=== PATIENT | female | born 1965 | race American Indian/Alaskan Native ===

== ENCOUNTER 2018-12-01 14:45 | Emergency (ER) | payer MEDICAID ==
[~2018-12-01] VITALS: Ht 149.9 cm; Wt 126.4 kg
[2018-12-01 15:07] VITALS: TEMP 98.6
[2018-12-01 16:04] LABS: BASO % 0.5 % (0.0-2.0); EOS # 0.4 (0.0-0.7); EOS % 5.7 % (0-4.0); GRAN # 4.1 (1.4-6.5); LYMPH # 1.4 (1.2-3.4); LYMPH % 21.7 % (20.0-51.0); MEAN CELL VOLUME 89 fl (80.0-100.0); MEAN CORPUSCULAR HEMOGLOBIN 28 pg (27.0-31.0); MEAN CORPUSCULAR HGB CONC 32 g/dl (33.0-37.0); MEAN PLATELET VOLUME 10.9 fl (7.4-10.4); MONO # 0.7 (0.1-0.6); MONO % 9.9 % (1.7-9.3); PLATELET COUNT 204 K/mm3 (130-400); RED BLOOD COUNT 4.59 M/mm3 (4.10-5.30); REDCELL DISTRIBUTION WIDTH-CV 15.4 % (11.5-14.5)
[2018-12-01 16:14] LABS: ALBUMIN 4.3 gm/dL (3.5-5.0); BILIRUBIN,TOTAL 0.9 mg/dL (0.0-1.0); CALCIUM 9.8 mg/dL (8.4-10.2); CREATININE, serum 0.64 (0.52-1.25); POTASSIUM 4.5 mmol/L (3.4-5.0); TOTAL PROTEIN 8.2 gm/dL (6.4-8.2)
[2018-12-01] MEDS ORDERED: PREDNISONE20 MG PO (16:44)
[2018-12-01] MEDS ORDERED: LIPITOR 10MG10 MG PO (16:59)
[2018-12-01] MEDS ORDERED: NEURONTIN300 MG/CAP PO (16:59)
[2018-12-01] MEDS ORDERED: SINGULAIR 110 MG/TAB PO (17:00)
[2018-12-01] MEDS ORDERED: FIORICET 325 MG1 TA1 PO (17:00)
[2018-12-01] MEDS ORDERED: SYNTHROID0.1 MG/TAB (17:02)
[2018-12-01 18:57] VITALS: BP 142/90; PULSE 100
== END 2018-12-01 18:58 | disposition home or self-care (01) ==
LOC: COL.ER 14:45
PROVIDERS: Emergency Medicine
DX: J45.901 Unspecified asthma with (acute) exacerbation (principal); E66.9 Obesity, unspecified; E78.5 Hyperlipidemia, unspecified; Z90.89 Acquired absence of other organs; Z98.51 Tubal ligation status; Z87.891 Personal history of nicotine dependence
CPT/HCPCS: J7512

== ENCOUNTER 2018-12-29 13:00 | Outpatient (RCR) | payer MEDICAID ==
[~2018-12-29 13:00] MED LIST: FIORICET 325 MG1 TA1 PO; LIPITOR 10MG10 MG PO; NEURONTIN300 MG/CAP PO; PREDNISONE20 MG PO; SINGULAIR 110 MG/TAB PO; SYNTHROID0.1 MG/TAB
== END 2019-03-08 | disposition home or self-care (01) ==
LOC: WSOT
DX: G56.03 Carpal tunnel syndrome, bilateral upper limbs (principal)

== ENCOUNTER → 2019-01-15 | Outpatient (CLI) | payer MEDICAID | LOC: COL.RAD 16:01 | DX: M16.12 Unilateral primary osteoarthritis, left hip (principal) ==

== ENCOUNTER → 2019-05-20 | Outpatient (CLI) | payer MEDICAID | LOC: MC.RAD 16:25 | DX: Z12.31 Encounter for screening mammogram for malignant neoplasm of breast (principal) ==

== ENCOUNTER → 2019-05-26 | Outpatient (CLI) | payer MEDICAID ==
[~2019-05-26] VITALS: Ht 148.6 cm; Wt 130.2 kg
[~2019-05-26] MED LIST changes: +BREO IH; +EPA FISH OIL1 SGL PO; +FLONASEALLERGY NS; +ONE-A-DAY WOMEN1 TAB PO; +SYNTHROID0.1 MG/TAB PO; +VENTOLIN0.09 MG IH; +WELLBUTRIN XL150 MG PO; +ZYRTEC 10MG10 MG PO
[2019-05-26 11:51] VITALS: BP 116/64; PULSE 88
== END ==
LOC: LIGHT
DX: Z68.43 Body mass index [BMI] 50.0-59.9, adult (principal); M54.5 Low back pain
CPT/HCPCS: G0463

== ENCOUNTER 2019-05-28 10:00 | Outpatient (RCR) | payer MEDICAID | END 2019-07-28 | disposition home or self-care (01) | LOC: WSC | DX: M54.5 Low back pain (principal); G89.29 Other chronic pain; M25.529 Pain in unspecified elbow; Z91.81 History of falling; Z90.89 Acquired absence of other organs; Z98.51 Tubal ligation status; Z90.49 Acquired absence of other specified parts of digestive tract ==

== ENCOUNTER → 2019-11-09 | Outpatient (CLI) | payer MEDICAID | LOC: COL.RAD 13:59 | DX: R07.9 Chest pain, unspecified (principal) ==

== ENCOUNTER → 2019-11-19 | Outpatient (CLI) | payer MEDICAID | LOC: COL.VAS 13:45 | DX: I51.7 Cardiomegaly (principal) ==

== ENCOUNTER → 2020-02-16 | Outpatient (CLI) | payer MEDICAID | LOC: COL.RAD 14:01 | DX: R10.2 Pelvic and perineal pain (principal); R14.0 Abdominal distension (gaseous); R63.0 Anorexia ==

== ENCOUNTER 2020-06-17 14:20 | Emergency (ER) | payer MEDICAID ==
[~2020-06-17] VITALS: Ht 149.9 cm; Wt 127.2 kg
[2020-06-17 14:46] VITALS: TEMP 97.5
[2020-06-17 15:15] LABS: COLLECTION METHOD CLEAN CATCH
[2020-06-17 15:33] LABS: MUCOUS Present /lpf; PH 5 (5-8); URINE APPEARANCE Hazy; URINE BACTERIA None Seen /hpf; URINE BILIRUBIN Negative (NEGATIVE); URINE BLOOD 1+ (NEGATIVE); URINE COLOR Yellow; URINE GLUCOSE Negative (NEGATIVE); URINE KETONE Negative (NEGATIVE); URINE LEUKOCYTE ESTERASE Negative (NEGATIVE); URINE NITRATE Negative (NEGATIVE); URINE PROTEIN(semi-quant) Negative (NEGATIVE); URINE RBC 0-2 /hpf; URINE UROBILINOGEN Negative (NEGATIVE)
[2020-06-17 16:10] LABS: BASO # 0.1 (0.0-0.2); BASO % 0.6 % (0.0-2.0); EOS # 0.4 (0.0-0.7); EOS % 4.4 % (0-4.0); GRAN # 4.7 (1.4-6.5); HEMATOCRIT 45.7 % (37.0-47.0); HEMOGLOBIN 14.8 g/dl (12.5-16.0); LYMPH # 2.3 (1.2-3.4); LYMPH % 28.1 % (20.0-51.0); MEAN CELL VOLUME 95 fl (80.0-100.0); MEAN CORPUSCULAR HEMOGLOBIN 31 pg (27.0-31.0); MEAN CORPUSCULAR HGB CONC 32 g/dl (33.0-37.0); MEAN PLATELET VOLUME 11.1 fl (7.4-10.4); MONO # 0.6 (0.1-0.6); MONO % 7.8 % (1.7-9.3); PLATELET COUNT 250 K/mm3 (130-400); RED BLOOD COUNT 4.81 M/mm3 (4.10-5.30); REDCELL DISTRIBUTION WIDTH-CV 13.2 % (11.5-14.5)
[2020-06-17 16:23] LABS: ALANINE AMINOTRANSFERASE 40 U/L (4-34); ALBUMIN 4.3 gm/dL (3.5-5.0); ALKALINE PHOSPHATASE 73 U/L (50-136); ANION GAP 11 mmol/L (7-16); AST,SGOT 33 U/L (15-37); BILIRUBIN,TOTAL 0.4 mg/dL (0.0-1.0); BLOOD UREA NITROGEN 15 mg/dL (7-17); CALCIUM 10.4 mg/dL (8.4-10.2); CARBON DIOXIDE 26 mmol/L (22-30); CHLORIDE 105 mmol/L (98-107); CREATININE, serum 0.75 (0.52-1.25); GLUCOSE 109 mg/dL (74-106); LIPASE 197 U/L (23-300); POTASSIUM 4.2 mmol/L (3.4-5.0); SODIUM 141 mmol/L (137-145); TOTAL PROTEIN 8.3 gm/dL (6.4-8.2)
[2020-06-17 16:24] LABS: C-REACTIVE PROTEIN < 0.5 mg/dL (0.0-0.9)
[2020-06-17] MEDS ORDERED: ZOFRAN ODT4 MG PO (16:32)
[2020-06-17 16:51] VITALS: BP 140/85; PULSE 84
== END 2020-06-17 17:19 | disposition home or self-care (01) ==
LOC: COL.ER 14:20
PROVIDERS: Family Medicine
DX: K52.9 Noninfective gastroenteritis and colitis, unspecified (principal); E66.9 Obesity, unspecified; Z32.02 Encounter for pregnancy test, result negative; Z90.49 Acquired absence of other specified parts of digestive tract
CPT/HCPCS: J2405; J7120

== ENCOUNTER 2020-12-23 14:45 | Outpatient (RCR) | payer MEDICAID ==
[~2020-12-23 14:45] MED LIST changes: +ZOFRAN ODT4 MG PO
== END 2021-03-07 | disposition home or self-care (01) ==
LOC: MKS.ESL.PT
DX: M54.32 Sciatica, left side (principal)
CPT/HCPCS: G0283-GP

== ENCOUNTER 2021-05-28 10:28 | Emergency (ER) | payer MEDICAID ==
[~2021-05-28] VITALS: Ht 149.9 cm; Wt 124.1 kg
[2021-05-28 10:38] VITALS: TEMP 98.3
[2021-05-28] MEDS ORDERED: NORCO 325 MG-51 TAB PO (12:38)
[2021-05-28] MEDS ORDERED: FLEXERIL 1010 MG/TAB PO (12:38)
[2021-05-28 13:15] VITALS: BP 151/97; PULSE 65
== END 2021-05-28 13:15 | disposition home or self-care (01) ==
LOC: COL.ER 10:28
DX: M25.552 Pain in left hip (principal); W01.0XXA Fall on same level from slipping, tripping and stumbling without subsequent striking against object, initial encounter
CPT/HCPCS: J1885; J2360

== ENCOUNTER → 2021-06-08 | Outpatient (CLI) | payer MEDICAID ==
[~2021-06-08] MED LIST changes: +FLEXERIL 1010 MG/TAB PO; +NORCO 325 MG-51 TAB PO
== END ==
LOC: COL.RAD 12:45
DX: M17.12 Unilateral primary osteoarthritis, left knee (principal)

== ENCOUNTER 2021-06-30 12:50 | Outpatient (RCR) | payer MEDICAID ==
[~2021-06-30 12:50] MED LIST changes: +SYNTHROID0.088 MG/T PO; -SYNTHROID0.1 MG/TAB PO
[2021-07-13] MEDS ORDERED: GLUCOPHAGE500 MG/TAB PO (13:55)
[2021-07-13] MEDS ORDERED: FLEXERIL 1010 MG/TAB PO (16:49)
[2021-07-13] MEDS ORDERED: NORCO 325 MG-51 TAB PO (16:49)
[2021-07-23] MEDS ORDERED: PREDNISONE20 MG PO (15:04)
[2021-07-23] MEDS ORDERED: PROAIR HFA0.09 MG/AC IH (15:04)
[2021-07-24] MEDS ORDERED: PREDNISONE20 MG PO (18:00)
[2021-07-24] MEDS ORDERED: PROAIR HFA0.09 MG/AC IH (18:00)
== END 2021-07-22 | disposition home or self-care (01) ==
LOC: MKS.ESL.PT
DX: M54.32 Sciatica, left side (principal); M25.562 Pain in left knee

== ENCOUNTER 2021-07-23 12:28 | Emergency (ER) | payer MEDICAID ==
[~2021-07-23 12:28] MED LIST changes: +GLUCOPHAGE500 MG/TAB PO
[2021-07-23 12:44] VITALS: BP 117/78; TEMP 97.8
[2021-07-23 13:35] LABS: BASO # 0.1 K/mm3 (0.0-0.2); BASO % 0.6 % (0.0-2.0); EOS # 0.3 K/mm3 (0.0-0.7); EOS % 4.3 % (0.0-4.0); GRAN % 62.9 % (42.2-75.2); HEMATOCRIT 41.9 % (37.0-47.0); HEMOGLOBIN 13.6 g/dl (12.5-16.0); LYMPH # 1.9 K/mm3 (1.2-3.4); LYMPH % 24.2 % (20.0-51.0); MEAN CELL VOLUME 94 fl (80.0-100.0); MEAN CORPUSCULAR HEMOGLOBIN 31 pg (27-31); MEAN CORPUSCULAR HGB CONC 33 g/dl (33.0-37.0); MEAN PLATELET VOLUME 10.9 fl (7.4-10.4); MONO # 0.6 K/mm3 (0.1-0.6); MONO % 7.7 % (1.7-9.3); PLATELET COUNT 208 K/mm3 (130-400); RED BLOOD COUNT 4.45 M/mm3 (4.10-5.30); REDCELL DISTRIBUTION WIDTH-CV 13.6 % (11.5-14.5)
[2021-07-23 13:45] LABS: ALANINE AMINOTRANSFERASE 30 U/L (0-55); ALBUMIN 3.7 gm/dL (3.5-5.0); ALKALINE PHOSPHATASE 85 U/L (40-150); ANION GAP 10 mmol/L (7-16); AST,SGOT 23 U/L (5-34); BILIRUBIN,TOTAL 0.8 mg/dL (0.2-1.2); BLOOD UREA NITROGEN 13 mg/dL (10-20); CALCIUM 10.1 mg/dL (8.4-10.2); CARBON DIOXIDE 27 mmol/L (22-29); CHLORIDE 105 mmol/L (98-107); CREATININE, serum 0.84 mg/dL (0.57-1.11); GLUCOSE 149 mg/dL (70-99); POTASSIUM 4.3 mmol/L (3.5-4.5); SODIUM 142 mmol/L (136-145); TOTAL PROTEIN 7.5 gm/dL (6.2-8.1)
[2021-07-23 13:51] LABS: TROPONIN-I < 0.010 ng/mL (0.00-0.033)
[2021-07-23] MEDS ORDERED: PREDNISONE20 MG PO (15:04)
[2021-07-23] MEDS ORDERED: PROAIR HFA0.09 MG/AC IH (15:04)
[2021-07-23 15:16] VITALS: PULSE 89
[2021-07-24] MEDS ORDERED: PREDNISONE20 MG PO (18:00)
[2021-07-24] MEDS ORDERED: PROAIR HFA0.09 MG/AC IH (18:00)
== END 2021-07-23 15:16 | disposition home or self-care (01) ==
LOC: COL.ER 12:28
PROVIDERS: Emergency Medicine
DX: J45.909 Unspecified asthma, uncomplicated (principal); Z79.51 Long term (current) use of inhaled steroids
CPT/HCPCS: J7512

== ENCOUNTER 2021-08-15 12:45 | Outpatient (RCR) | payer MEDICAID ==
[~2021-08-15 12:45] MED LIST changes: +PROAIR HFA0.09 MG/AC IH
== END 2021-08-22 | disposition home or self-care (01) ==
LOC: MKS.ESL.PT
DX: M54.16 Radiculopathy, lumbar region (principal)

== ENCOUNTER 2021-08-28 11:15 | Outpatient (RCR) | payer MEDICAID | END 2021-09-21 | disposition home or self-care (01) | LOC: WSC | DX: M54.16 Radiculopathy, lumbar region (principal) ==

== ENCOUNTER 2021-09-22 15:32 | Outpatient (RCR) | payer MEDICAID | END 2021-12-06 15:32 | LOC: MKS.ESL.PT 15:32 | DX: M54.32 Sciatica, left side (principal); M25.562 Pain in left knee ==

== ENCOUNTER 2022-01-12 10:30 | Outpatient (RCR) | payer MEDICAID | END 2022-01-22 | disposition home or self-care (01) | LOC: WSC | DX: M54.16 Radiculopathy, lumbar region (principal) ==

== ENCOUNTER → 2022-01-17 | Outpatient (CLI) | payer MEDICAID | LOC: COL.RAD 13:33 | DX: G56.03 Carpal tunnel syndrome, bilateral upper limbs (principal); M25.531 Pain in right wrist; M25.532 Pain in left wrist ==

== ENCOUNTER 2022-02-04 13:44 | Emergency (ER) | payer MEDICAID ==
[~2022-02-04] VITALS: Ht 149.9 cm; Wt 127.3 kg
[2022-02-04 13:50] VITALS: TEMP 97.8
[2022-02-04 14:05] LABS: BASO # 0.1 K/mm3 (0.0-0.2); BASO % 0.6 % (0.0-2.0); EOS # 0.5 K/mm3 (0.0-0.7); GRAN # 4.7 K/mm3 (1.4-6.5); GRAN % 58.8 % (42.2-75.2); HEMATOCRIT 43.7 % (37.0-47.0); HEMOGLOBIN 14.3 g/dl (12.5-16.0); LYMPH % 24.6 % (20.0-51.0); MEAN CELL VOLUME 92 fl (80.0-100.0); MEAN CORPUSCULAR HEMOGLOBIN 30 pg (27-31); MEAN CORPUSCULAR HGB CONC 33 g/dl (33.0-37.0); MEAN PLATELET VOLUME 10.6 fl (7.4-10.4); MONO # 0.8 K/mm3 (0.1-0.6); MONO % 9.8 % (1.7-9.3); PLATELET COUNT 240 K/mm3 (130-400); RED BLOOD COUNT 4.73 M/mm3 (4.10-5.30)
[2022-02-04 14:22] LABS: ALBUMIN 3.9 gm/dL (3.5-5.0); BILIRUBIN,TOTAL 0.8 mg/dL (0.2-1.2); CALCIUM 10.7 mg/dL (8.4-10.2); CREATININE, serum 0.8 mg/dL (0.57-1.11); POTASSIUM 4.2 mmol/L (3.5-4.5); TOTAL PROTEIN 8.1 gm/dL (6.2-8.1)
[2022-02-04] MEDS ORDERED: PREDNISONE20 MG PO (17:53)
[2022-02-04] MEDS ORDERED: PROAIR HFA0.09 MG/AC IH (17:54)
[2022-02-04 18:07] VITALS: BP 133/86; PULSE 98
== END 2022-02-04 18:29 | disposition home or self-care (01) ==
LOC: COL.ER 13:44
PROVIDERS: Family Medicine
DX: J45.901 Unspecified asthma with (acute) exacerbation (principal); Z20.822 Contact with and (suspected) exposure to COVID-19; I45.10 Unspecified right bundle-branch block
CPT/HCPCS: J2930

== ENCOUNTER 2022-06-20 09:55 | Outpatient (RCR) | payer MEDICAID ==
[~2022-06-20 09:55] MED LIST changes: +GLUCOPHAGE1000 MG PO; +IPRATROPIUM BROM3 M1 IH; +NEB MC
== END 2022-06-22 ==
LOC: WSPT
DX: M54.32 Sciatica, left side (principal); G89.29 Other chronic pain; M25.552 Pain in left hip

== ENCOUNTER 2022-07-20 11:15 | Outpatient (RCR) | payer MEDICAID | END 2022-07-22 | disposition home or self-care (01) | LOC: WSPT | DX: M54.32 Sciatica, left side (principal); G89.29 Other chronic pain; M25.552 Pain in left hip ==

== ENCOUNTER 2022-12-18 10:45 | Outpatient (RCR) | payer MEDICAID | END 2022-12-22 | disposition home or self-care (01) | LOC: WSOT | DX: M25.521 Pain in right elbow (principal); M54.2 Cervicalgia ==

== ENCOUNTER 2023-03-25 14:27 | Emergency (ER) | payer MEDICAID ==
[~2023-03-25] VITALS: Ht 149.9 cm; Wt 113.6 kg
[2023-03-25] MEDS ORDERED: PREDNISONE20 MG PO (16:34)
[2023-03-25 17:53] VITALS: BP 144/101; PULSE 100; TEMP 98.2
== END 2023-03-25 17:55 | disposition home or self-care (01) ==
LOC: COL.ER 14:27
DX: J45.901 Unspecified asthma with (acute) exacerbation (principal); Z79.51 Long term (current) use of inhaled steroids
CPT/HCPCS: J2930

== ENCOUNTER → 2023-06-04 | Outpatient (CLI) | payer MEDICAID ==
[~2023-06-04] MED LIST changes: +Albuterol 0.083% Neb Soln 2.5 MG/3 ML UD IH ONE
== END ==
LOC: COL.CARD 14:20
DX: R06.02 Shortness of breath (principal)

== ENCOUNTER 2023-07-04 09:30 | Emergency (ER) | payer MEDICAID ==
[~2023-07-04] VITALS: Ht 149.9 cm; Wt 119.5 kg
[~2023-07-04 09:30] MED LIST changes: -Albuterol 0.083% Neb Soln 2.5 MG/3 ML UD IH ONE
[2023-07-04 09:41] VITALS: TEMP 97.9
[2023-07-04] MEDS ORDERED: NS 1,000 ML IV ONE (10:00)
[2023-07-04] MEDS ORDERED: Ondansetron 4 MG/2 ML VIAL IV ONE ×2 (10:00→12:15)
[2023-07-04 10:06] LABS: BASO % 0.6 % (0.0-2.0); EOS # 0.3 K/mm3 (0.0-0.7); EOS % 4.4 % (0.0-4.0); GRAN # 3.9 K/mm3 (1.4-6.5); GRAN % 58.1 % (42.2-75.2); HEMATOCRIT 41.3 % (37.0-47.0); HEMOGLOBIN 13.5 g/dl (12.5-16.0); LYMPH # 1.8 K/mm3 (1.2-3.4); LYMPH % 27.5 % (20.0-51.0); MEAN CELL VOLUME 92 fl (80.0-100.0); MEAN CORPUSCULAR HEMOGLOBIN 30 pg (27-31); MEAN CORPUSCULAR HGB CONC 33 g/dl (33.0-37.0); MEAN PLATELET VOLUME 10.4 fl (7.4-10.4); MONO # 0.6 K/mm3 (0.1-0.6); MONO % 9.2 % (1.7-9.3); PLATELET COUNT 284 K/mm3 (130-400); REDCELL DISTRIBUTION WIDTH-CV 14.2 % (11.5-14.5)
[2023-07-04 10:17] LABS: ALBUMIN 3.6 g/dL (3.5-5.0); BILIRUBIN,TOTAL 0.6 mg/dL (0.2-1.2); CALCIUM 10.2 mg/dL (8.4-10.2); CREATININE, serum 0.78 mg/dL (0.57-1.11); TOTAL PROTEIN 8.1 g/dl (6.2-8.1)
[2023-07-04] MEDS ORDERED: Ketorolac 30 MG/ML VIAL IV ONE (10:45)
[2023-07-04] MEDS ORDERED: Iohexol 300 - 100 ML VIAL IV ONE (11:14)
[2023-07-04] MEDS ORDERED: NS 100 ML IV SCH (11:14)
[2023-07-04 11:45] LABS: COLLECTION METHOD CLEAN CATCH
[2023-07-04 11:56] LABS: PH 5.5 (5.0-8.5); URINE APPEARANCE CLEAR (CLEAR/HAZY); URINE BLOOD NEGATIVE (NEGATIVE); URINE COLOR YELLOW (YELLOW); URINE GLUCOSE NEGATIVE (NEGATIVE); URINE KETONE NEGATIVE (NEGATIVE); URINE NITRATE NEGATIVE (NEGATIVE); URINE PROTEIN(semi-quant) NEGATIVE (NEGATIVE); URINE UROBILINOGEN 0.2 E.U/dL (0.2-1.0)
[2023-07-04] MEDS ORDERED: Morphine 4 MG/ML VIAL IV ONE (12:45)
[2023-07-04] MEDS ORDERED: NORCO 325 MG-51 TAB PO (13:16)
[2023-07-04 13:28] VITALS: BP 161/94; PULSE 68
== END 2023-07-04 13:28 | disposition home or self-care (01) ==
LOC: COL.ER 09:30
PROVIDERS: Physician Assistant
DX: R10.12 Left upper quadrant pain (principal); R91.8 Other nonspecific abnormal finding of lung field; R11.0 Nausea; E11.9 Type 2 diabetes mellitus without complications; Z79.84 Long term (current) use of oral hypoglycemic drugs
CPT/HCPCS: J1885; J2405; J7030; Q9967

== ENCOUNTER 2023-07-16 06:29 | Day surgery (SDC) | payer MEDICAID ==
[~2023-07-16] VITALS: Ht 149.9 cm; Wt 115.8 kg
[2023-07-16] MEDS ORDERED: LR 1,000 ML IV SCH (07:00)
[2023-07-16] MEDS ORDERED: Lidocaine PF 2% (20 MG/ML) 5 ML VIAL ONE (07:39)
[2023-07-16] MEDS ORDERED: Glycopyrrolate 0.2 MG/ML 1 ML VIAL ONE (07:39)
[2023-07-16 07:40] LABS: TRICYCLIC ANTIDEPRESS URINE NEGATIVE (NEGATIVE)
[2023-07-16] MEDS ORDERED: Lidocaine 2% Viscous 15 ML UNIT DOSE MM ONE (08:18)
[2023-07-16] MEDS ORDERED: Lidocaine PF 1% (10 MG/ML) 5 ML VIAL MM ONE (08:18)
[2023-07-16 08:30] VITALS: BP 103/61; PULSE 116; TEMP 98.4
[2023-07-16 08:45] VITALS: BP 119/96; PULSE 104
[2023-07-16] MEDS ORDERED: Albuterol 0.042% Neb Soln 1.25 MG/3 ML UD IH PRN (08:45)
[2023-07-16 09:00] VITALS: BP 104/85; PULSE 101
[2023-07-16] MEDS ORDERED: Ondansetron 4 MG/2 ML VIAL IV ONE (09:00)
[2023-07-16 09:15] VITALS: BP 110/67; PULSE 100
[2023-07-16 09:40] VITALS: BP 125/75; PULSE 92; TEMP 97.4
[2023-07-16 09:45] VITALS: BP 110/72; PULSE 95
--- NOTE | 2023-07-16 10:20 | NUR ---
[id number]: PT TO REMAIN IN [facility] FOR RECOVERY S/P BRONCHOSCOPY WITH R BX A&O, NAD, PLACED ON MONITOR, VSS ON RA COUGHING AND MILDLY GAGGING UPON HANDOFF, CLEAR SPUTUM, DENIES SOB OR OTHER COMPLAINT RECEIVED REPORT AND ASSUMED CARE OF PT FROM TYRONE SANDERS FRIEND/RIDE HOME IN [employer] USED (#[id number]) JUST AFTER HANDOFF TO ASSESS PT AND DISCUSS DISPO C/O NAUSEA - TC TO [facility] FOR TORB 4 ZOFRAN IV - GIVEN ALONG WITH ISOPROPOL PADS WITH INSTRUCTION TO INHALE FOR NAUSEA CESSATION - PT VERBALIZED. RT CALLED SHORTLY AFTER HANDOFF FOR NEB TX DUE TO SEVERE COUGH - RT AT BEDSIDE ~0840 TO ADMIN NEB TX, COUGH IMPROVED DRAMATICALLY, LUNGS CLEAR PRE AND POST TX. POST=PROCEDURE POC GLUCOSE 120'S SWALLOWING AND MANAGING AIRWAY - GIVEN SIPS OF WATER, LATER FOOD-TOLERATED WELL PT HAS REMAINED A&O, NAD, VSS ON RA, TOLERATING PO, IS WITHOUT SIGNIFICANT COMPLAINT, WITH SAFE GAIT TO BR TO VOID BY THE END OF STAY [employer] #[id number] USED FOR DC INSTRUCTIONS/DC PROCESS IV D/C'D. D/C INSTRUCTIONS, FOLLOW UP REVIEWED AND HANDED TO PT. ALL QUESTIONS AND CONCERNS ADDRESSED TO PT SATISFACTION. TAKEN TO EXIT VIA W/C WITH ALL BELONGINGS AND PAPERWORK IN HAND, ASSISTED INTO PASSENGER SEAT OF PO. FRIEND TO DRIVE HOME.
== END 2023-07-16 10:00 | disposition home or self-care (01) ==
LOC: SDCO 06:29
PROVIDERS: Nurse Anesthetist, Certified Registered
DX: J98.11 Atelectasis (principal); J98.09 Other diseases of bronchus, not elsewhere classified; R59.0 Localized enlarged lymph nodes; J45.909 Unspecified asthma, uncomplicated; E66.01 Morbid (severe) obesity due to excess calories; Z87.891 Personal history of nicotine dependence; Z68.43 Body mass index [BMI] 50.0-59.9, adult
CPT/HCPCS: J2405; J2704

== ENCOUNTER 2023-09-18 15:00 | Outpatient (RCR) | payer MEDICAID | END 2023-09-22 | LOC: WSPT | DX: M54.42 Lumbago with sciatica, left side (principal); G89.29 Other chronic pain | CPT/HCPCS: G0283-GP ==

== ENCOUNTER 2023-09-30 12:45 | Outpatient (RCR) | payer MEDICAID | END 2023-10-23 | disposition home or self-care (01) | LOC: WSC | DX: M54.16 Radiculopathy, lumbar region (principal) ==